=== PATIENT | male | born 1955 | race Caucasian/White ===

== ENCOUNTER → 2016-08-18 | Outpatient (CLI) | payer BC ==
[~2016-08-18] MED LIST: ALEVE 220MG220 MG PO; ASPI325T6 PO; ASPIRIN 32325 MG/TAB PO; CARDIZEM CD 12120 MG PO; DIABETA1.25 MG PO; FLEXERIL 1010 MG/TAB PO; GLUCOPHAGE1000 MG PO; GLUCOPHAGE500 MG/TAB PO; LOTREL; LOTREL 10 MG-201 CAP PO; METFORMIN; NORCO 325 MG-51 TAB PO; SIMVASTATIN5 MG; SUPER EPA W/BO400 MG PO; XARELTO20 MG PO
== END ==
LOC: MHCPAIN 08:57
DX: G89.29 Other chronic pain (principal); M47.817 Spondylosis without myelopathy or radiculopathy, lumbosacral region; M54.16 Radiculopathy, lumbar region; Z87.891 Personal history of nicotine dependence
CPT/HCPCS: G0463

== ENCOUNTER → 2016-08-20 | Outpatient (CLI) | payer BC | LOC: MHCPAIN 07:49 | DX: M47.817 Spondylosis without myelopathy or radiculopathy, lumbosacral region (principal) | CPT/HCPCS: J1100; Q9967 ==

== ENCOUNTER → 2016-09-18 | Outpatient (CLI) | payer BC | LOC: MHCPAIN 10:51 | DX: G89.29 Other chronic pain (principal); M47.817 Spondylosis without myelopathy or radiculopathy, lumbosacral region; M54.16 Radiculopathy, lumbar region; M53.3 Sacrococcygeal disorders, not elsewhere classified; Z87.891 Personal history of nicotine dependence | CPT/HCPCS: G0463 ==

== ENCOUNTER → 2016-12-22 | Outpatient (CLI) | payer BC | LOC: MHCPAIN 10:41 | DX: G89.29 Other chronic pain (principal); M47.27 Other spondylosis with radiculopathy, lumbosacral region; F17.210 Nicotine dependence, cigarettes, uncomplicated | CPT/HCPCS: G0463 ==

== ENCOUNTER → 2021-12-18 | Outpatient (CLI) | payer MEDICARE, BC ==
[~2021-12-18] MED LIST changes: +*Hypoglycemia Clinic MC; +ASPIRIN 81M81 MG/TA2 PO; +ASPIRIN E.C. 8181 MG PO; +BD POSIFLUSH SF10 ML IV; +CORDARONE200 MG/TAB PO; +DEXTROSE 525 GM/50 M IV; +DEXTROSE PO; +DIABETA 5MG5 MG/TAB PO; -DIABETA1.25 MG PO; +GLUCAGON EMERGEN1 M1 IM; +IMDUR 30MG30 MG/TAB PO; +LANTUS100 U/ML SQ; +LEVEMIR FLEX100 U/ML SQ; +NATURAL IRON65 MG PO; +NEURONTIN100 MG/CAP PO; +NOVLOG SQ; +PACERONE200 MG PO; +PEPCID 20MG TAB20 MG PO; +PLAVIX 75MG TAB75 MG PO; +PRAVACHOL 20MG20 MG PO; +PRAVACHOL 40MG40 MG PO; +PRAVACHOL80 MG PO; +PRINIVIL10 MG PO; +PROTONIX 40MG T40 MG PO; +TOPROL XL 25MG25 MG PO; +TOPROL XL 50MG50 MG PO; +VTAMINC250TA; +ZOFRAN INJ4 MG/2 ML IV
== END ==
LOC: COL.RAD 14:00
DX: D72.829 Elevated white blood cell count, unspecified (principal); R91.8 Other nonspecific abnormal finding of lung field; I25.10 Atherosclerotic heart disease of native coronary artery without angina pectoris

== ENCOUNTER → 2021-12-29 | Outpatient (RCR) | payer MEDICARE, BC | END | disposition home or self-care (01) | LOC: COL.CR | DX: Z48.812 Encounter for surgical aftercare following surgery on the circulatory system (principal); Z95.5 Presence of coronary angioplasty implant and graft ==

== ENCOUNTER 2022-03-27 15:19 | Outpatient (RCR) | payer MEDICARE, BC | END 2022-03-27 15:25 | disposition home or self-care (01) | LOC: COL.CR 15:19 | DX: Z48.812 Encounter for surgical aftercare following surgery on the circulatory system (principal); Z95.5 Presence of coronary angioplasty implant and graft ==